=== PATIENT | female | born 1980 | race Caucasian/White ===

== ENCOUNTER → 2020-07-05 00:27 | Outpatient (CLI) | payer BC, SELFPAY ==
[2020-07-05 18:19] LABS: SARS-CoV-2 RNA PCR Negative
== END ==
PROVIDERS: Family Provider Family Medicine; PCP Family Medicine; Visit Provider Internal Medicine Gastroenterology
DX: Z01.812 Encounter for preprocedural laboratory examination (principal); Z20.822 Contact with and (suspected) exposure to COVID-19
CPT/HCPCS: C9803; U0003; U0005

== ENCOUNTER 2020-07-08 00:21 | Day surgery (SDC) | payer BC, SELFPAY ==
[2020-06-19 14:13] VITALS: BMI 29.6
[2020-07-08 07:51] VITALS: BP 122/71; PULSE 62; RESP 18; TEMP 36.3; O2SAT 99
[2020-07-08] MEDS: LACTATED RINGERS 1,000 ML 150 ML IV CONT (08:02)
--- NOTE | 2020-07-08 08:18 | WPDANESEPPF ---
Anes - Initial Pre Proc Eval Procedure: Operation Date: 07/08/20 09:15 Proposed Procedures p Colonoscopy - Jem Gamino MD Date/Time: 07/08/20 08:18 Surgeon: Jem Gamino MD Pre Op Diagnosis: Constipation Patient Data Age: 40 Gender: F Height: 5 ft 4 in Weight: 76.2 kg Last Vital Signs Temp 36.3 C L 07/08/20 07:51 Pulse 62 07/08/20 07:51 Resp 18 07/08/20 07:51 BP 122/71 07/08/20 07:51 Pulse Ox 99 07/08/20 07:51 Allergies Allergy/AdvReac Type Severity Reaction Status Date / Time Cephalosporins Allergy Mild Rash Unverified 06/13/20 10:51 Home Medications Medication Instructions Recorded Confirmed Type linaclotide 145 mcg capsule 145 mcg PO DAILY #30 cap 06/13/20 07/08/20 Rx minocycline 100 mg capsule 100 mg PO .PRN cap 06/13/20 07/08/20 History omeprazole 20 mg capsule,delayed 20 mg PO DAILY 06/13/20 07/08/20 History release Patient hx anesthesia problems: none Family hx anesthesia problems: none PMFSH Past Medical History Medical History Blood in stool Irritable bowel syndrome with constipation Surgical History Surgical History H/O: hysterectomy History of History of gastric bypass Family History Family History Father Hypertension Diabetes mellitus Mother Diabetes mellitus Hypertension Grandparent Heart disease Sibling Diabetes mellitus Sibling Diabetes mellitus Social History Social History Smoking status: Former smoker Tobacco type: cigarettes Second hand tobacco smoke exposure: No Alcohol intake: former Alcohol use details: NOT SINCE GASTRIC BYPASS Substance use: unknown Substance use type: unknown Living arrangements: with family Gender identity (if verbalized by the patient): Female Spiritual care concerns: No Anes - Eval Final PreProcedure Day of Procedure 07/08/20 08:18 Patient weight: overweight Heart: regular rate and rhythm Lungs: clear to auscultation Airway: Mallampati scale class 1 Neurological: alert and oriented Last oral intake: >/= 8 hours ASA classification: II Emergent: no Anesthetic plan: proceed Anesthesia type and monitoring: general GIVS and standard monitoring Informed Consent: The patient's anesthetic plan and its attendant risks and benefits were discussed with the patient/family/POA. Questions were solicited and answers provided to the satisfaction of the patient/family/POA.
--- NOTE | 2020-07-08 08:32 | WPDHPUPDATE1 ---
History and Physical Update Update Date/Time: 07/08/20 08:32 History and Physical has been reviewed, including an updated exam of the patient. There are NO changes in the patient's condition. Risks, benefits, and alternatives have been discussed and questions answered. Patient agrees to proceed with procedure.
[2020-07-08 08:58] VITALS: BP 109/63; PULSE 53; RESP 21; O2SAT 100
[2020-07-08 09:08] VITALS: BP 113/73; PULSE 49; RESP 18; O2SAT 100
[2020-07-08 09:18] VITALS: BP 105/68; PULSE 44; RESP 13; O2SAT 100
== END 2020-07-08 09:30 | disposition home or self-care (01) ==
PROVIDERS: Family Provider Family Medicine; PCP Family Medicine; Visit Provider Internal Medicine Gastroenterology
PROC: 0DJD8ZZ Inspection of Lower Intestinal Tract, Via Natural or Artificial Opening Endoscopic (ICD-10-PCS; CPT 45378; principal; 2020-07-08 09:15)
DX: Z12.11 Encounter for screening for malignant neoplasm of colon (principal); K64.8 Other hemorrhoids; K58.1 Irritable bowel syndrome with constipation; Z98.84 Bariatric surgery status; Z87.891 Personal history of nicotine dependence
CPT/HCPCS: 45378; J2001; J2704; J7120

== ENCOUNTER 2022-08-25 07:56 | Outpatient (CLI) | payer BC, SELFPAY ==
--- NOTE | ~2022-08-25 | NM_ITS ---
EXAM: NM gastric emptying study DATE: 08/25/2022 12:53 INDICATION: Postprandial abdominal bloating post gastric bypass 2 years prior. TECHNIQUE: A gastric emptying study was performed using the methodology of Mau BARBOSA, et al. J Nucl Med 2007; 48:568-572. The patient was given a meal consisting of 2 scrambled eggs labeled with 0.968 mCi Tc-99m sulfur colloid, 2 slices of toast, two packages of jam, and approximately 120 mL of water . Simultaneous anterior and posterior 1-min images of the abdomen were obtained with the patient supi ne at multiple time points over a total period of 4 hours. The geometric mean of anterior and posteri or views was determined, and the percentage retention was calculated for each time point. COMPARISON: None. FINDINGS: There is an atypical distribution of activity on the immediate scintigrams which likely reflects horn ges of a reported recent gastric bypass procedure. There is no prior imaging to assess the size and l ocation of the summed the gastric remnant or the course of the efferent limb which precludes quantita tive assessment for percentage of gastric emptying. The extent and orientation of the activity on the immediate images suggests a significant portion of the activity has already entered the efferent garcia b and which significantly increases on the more delayed images. It is unclear whether any of the acti vity on the subsequent images remains within the gastric remnant. There is no evident gastroesophagea l reflux. IMPRESSION: 1. Atypical configuration of activity consistent with provided history of gastric bypass procedure wi th no evident gastroesophageal reflux and with likely rapid initiation of emptying into the efferent limb. Reviewed, dictated and finalized at location A. IMPRESSION: 1. Atypical configuration of activity consistent with provided history of gastr ic bypass procedure with no evident gastroesophageal reflux and with likely rap id initiation of emptying into the efferent limb.
== END 2022-08-25 07:57 | disposition home or self-care (01) ==
LOC: ANHIMG 07:59
PROVIDERS: PCP Family Medicine; Visit Provider Nurse Practitioner Family
DX: R14.0 Abdominal distension (gaseous) (principal); R10.11 Right upper quadrant pain; Z98.84 Bariatric surgery status
CPT/HCPCS: 78264; A9541

== ENCOUNTER 2022-08-26 07:36 | Outpatient (CLI) | payer BC, SELFPAY ==
--- NOTE | ~2022-08-26 | MR_ITS ---
EXAMINATION: MR MRCP wo/w con/w 3D wo ind DATE: 08/26/2022 08:56 INDICATION: Right upper quadrant abdominal pain. Abnormal liver function tests. TECHNIQUE: Magnetic resonance imaging (MRI) of the abdomen was performed without and with 13 mL Multi Karina intravenous contrast. Sequences included coronal T2-weighted FS FSE, coronal T2-weighted FSE, a xial T1-weighted LAVA, coronal FS FIESTA, axial dual-echo T1-weighted SPGR, coronal lava-FLEX, sagitt al T2-weighted FSE, axial T2-weighted FSE, and axial DWI. Thick-slab T2-weighted FSE images were obta ined for magnetic resonance cholangiopancreatography (MRCP). Maximum intensity projection 3-D reconst ructions of the volumetric data were created by the technologist. Postcontrast sequences included cor onal LAVA-flex and time course of axial T1-weighted LAVA. COMPARISON: CT abdomen and pelvis 04/12/2009 FINDINGS: ABDOMEN MRI: The liver is normal. There are changes of cholecystectomy. 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 The spleen, adrenal glands, and kidneys are normal. There is a large volume of stool in the colon. There are no pathologically enlarged lymph nodes. There is no free intraperitoneal fluid. ABDOMEN MRCP: The common duct is normal and measures 9 mm. No choledocholithiasis. IMPRESSION: 1. No etiology for the patient's symptoms. Reviewed, dictated and finalized at location A.
== END 2022-08-26 07:37 | disposition home or self-care (01) ==
PROVIDERS: PCP Family Medicine; Visit Provider Nurse Practitioner Family
DX: R74.8 Abnormal levels of other serum enzymes (principal); K58.1 Irritable bowel syndrome with constipation; R10.11 Right upper quadrant pain
CPT/HCPCS: 74183; 76376; A9577

== ENCOUNTER 2024-09-25 00:33 | Day surgery (SDC) | payer OTHER, SELFPAY ==
[2024-09-22 10:04] VITALS: BMI 23.1
--- OUTSIDE RECORDS SUMMARY | 2024-09-25 00:36 | XMS_ITS | Clinical Summary ---
Author Organization [facility] Address [address] [place] [address] Care Team Providers Care Ase Master Mechanic Name Role Phone Fabian Knapp MD Primary Care Provider Allergies Active Allergy Reactions Criticality Noted Date Comments Cephalexin Unknown 04/17/2019 Medications Multiple Vitamin tablet Take 1 tablet by mouth daily. Active senna-docusate 8.6-50 MG Cap Take 1 tablet by mouth 2 (two) times a day. Active buPROPion 100 MG tablet Take 1 tablet (100 mg total) by mouth 3 (three) times daily. 2 Active LINZESS 290 MCG capsule Take 1 capsule (290 mcg total) by mouth daily. 2 Active Magnesium 30 MG Tab Take 30 mg by mouth daily. Active minocycline 100 MG capsule Take 1 capsule (100 mg total) by mouth 2 (two) times daily as needed. Active ondansetron 4 MG disintegrating tablet Take 1 tablet (4 mg total) by mouth every 6 (six) hours as needed. 1 Active Probiotic Product (ACIDOPHILUS) Chew Tab Chew 1 tablet by mouth daily. Active calcium citrate 950 (200 CA) MG Tab tablet 500 mg 3 (three) times daily. Active Magnesium Gluconate 550 MG Tab Take 30 mg by mouth daily. Active methylphenidate (RITALIN) 10 MG tablet Take 1 tablet (10 mg total) by mouth. Active omeprazole (PRILOSEC) 20 MG capsule Take 1 capsule (20 mg total) by mouth daily. 4 Active Active Problems Problem Noted Date Diagnosed Date Closed nondisplaced fracture of base of fourth metacarpal bone of left hand with routine healing, subsequent encounter 12/16/2023 Closed nondisplaced fracture of base of fifth metacarpal bone of left hand with routine healing, subsequent encounter 12/16/2023 Hematoma of left knee region 08/15/2021 Lytic bone lesion of left femur 08/15/2021 Encounters Date Type Department Care Team Description 08/07/2024 4:58 PM CDT - 08/07/2024 11:59 PM CDT Hospital Encounter [facility] [address] [facility] [place] [address] [place], [place] Discharge Disposition: Home or Self Care (Routine Discharge) 08/07/2024 Travel from Last 3 Months Immunizations Immunization Administration Dates Next Due Tdap (Boostrix) 11/21/2023 Family History Medical History Relation Comments Breast Cancer Maternal Aunt Relation Status Comments Maternal Aunt Social History Tobacco Use Types Packs/Day Years Used Date Smoking Tobacco: Former Smokeless Tobacco: Never Tobacco Cessation:Counseling Given: Not Answered Alcohol Use Standard Drinks/Week Comments No 0 (1 standard drink = 0.6 oz pur e alcohol) AUDIT-C Answer Date Recorded Frequency of Alcohol Consumption Never 04/17/2019 Average Number of Drinks Not on file 019 Frequency of Binge Drinking Not on file 03/25 Comments No Sex and Gender Information Value Date Recorded Sex Assigned at Not on file Legal Sex Female 11:18 PM CDT Gender Identity Not on file Sexual Orientation Not on file Last Filed Vital Signs Vital Sign Reading Time Taken Comments Blood Pressure 128/90 11/21/2023 11:15 AM CDT Pulse 88 11/21/2023 11:15 AM CDT Temperature 36.9 C (98.4 F) 11/21/2023 11:15 AM CDT Respiratory Rate 16 11/21/2023 11:15 AM CDT Oxygen Saturation 100% 11/21/2023 11:15 AM CDT Inhaled Oxygen Concentration - - Weight 65.8 kg (145 lb) 01/06/2024 2:55 PM CDT Height 162.6 cm (5' 4 ) 01/06/2024 2:55 PM CDT Body Mass Index 24.89 01/06/2024 2:55 PM CDT Plan of Treatment Health Maintenance Due Date Last Done Comments Cervical Cancer Screening Pap Smear (Age 30 to 64) Every 3 Years 1978 Colorectal Cancer Screening Colonoscopy (10 Years) 1978 Annual Physical 1981 Hepatitis B Vaccines (1 of 3 - 19+ 3-dose series) 1997 Cervical Cancer Screening Pap with HPV Testing (Age 30 to 64) Every 5 Years 2008 Cervical Cancer Screening with HPV 2008 COVID-19 Vaccine ( season) 2024 Mammogram Screening 04/24/2026 04/24/2024, 04/20/2023, 04/08/2022, Additional history exists DTaP, Tdap and Td Vaccines (2 - Td or Tdap) 11/20/2033 11/21/2023 Hepatitis C Completed 10/16/2022, 08/12/2021 Meningococcal B Vaccine Aged Out No l onger eligible based on patient's age to complete this topic Meningococcal Vaccine Aged Out No cynthia tyler eligible based on patient's age to complete this topic Pneumococcal Vaccine: Pediatrics (0 to 5 Years) and At-Risk Patients (6 to 49 Years) Aged Out No longer eligible based on patient's age to complete this topic RSV Immunizations Under 20 Months Aged Out No longer eligible based on patient's age to complete this topic Procedures Procedure Name Priority Date/Time Associated Diagnosis Comments XR HAND LT 3V Routine 08/07/2024 5:19 PM CDT Left hand pain MG SCREENING W MIHAELA BAUTISTA DIGI Routine 04/24/2024 10:01 AM FLAT LOCK OPERATOR Visit for screening mammogram HEPATITIS PANEL,ACUTE Routine 10/16/2022 11:15 AM CDT Abnormal levels of other serum enzymes from Last 3 Months or Most Recently Relevant to Health Maintenance Results * XR HAND LT 3V (08/07/2024 5:19 PM CDT) Anatomical Region Laterality Modality Hand Radiographic Anne ging 08/07/2024 6:38 PM CDT Impressions 08/07/2024 6:39 PM CDT IMPRESSION: No acute findings Ordered By: ROMAN RICHMOND Interpreted By: Rodri Ch MD, 08/07/2024 6:38 PM Narrative 08/07/2024 6:39 PM CDT [address] [place] [address] 3 VIEWS OF THE LEFT HAND Clinical History: Pain Comparison: January 06, 2024 3 views of the left hand demonstrate the bony elements to be intact. There is no evidence of fracture or dislocation. . The surrounding soft tissues are within normal limits Procedure Note Rodri Ch MD - 08/07/[address] [place] [address] 3 VIEWS OF THE LEFT HAND Clinical History: Pain Comparison: January 06, 2024 3 views of the left hand demonstrate the bony elements to be intact. Thereis no evidence of fracture or dislocation. . The surrounding soft tissuesare within normal limits IMPRESSION: No acute findings Ordered By: ROMAN RICHMOND Interpreted By: Rodri Ch MD, 08/07/2024 6:38 PM [facility] Final Result * MG SCREENING W MIHAELA BAUTISTA DIGI (04/24/2024 10:01 AM FLAT LOCK OPERATOR) Anatomical Region Laterality Modality Breast Bilateral Mammography 04/24/2024 1:43 PM FLAT LOCK OPERATOR Impressions 04/24/2024 1:44 PM FLAT LOCK OPERATOR IMPRESSION: No suspicious change since the previous exams. Recommendation: 1: Routine Screening Bilateral in 1 Year Assessment: ACR BI-RADS 2 - BENIGN FINDING(S) Ordered By: ROMAN RICHMOND Interpreted By: Sidney Jansen MD, 04/24/2024 1:43 PM Narrative 04/24/2024 1:44 PM FLAT LOCK OPERATOR [address] [place] [address] Examination: Digital screening mammogram with CAD. Clinical history: Asymptomatic patient presents for routine screening. Comparison: 04/20/2023, 04/08/2022, 04/03/2021, 03/27/2020. Technique: Bilateral digital mammograms. The exam was interpreted with the use of a computer-aided detection (CAD) system. Additional 3-D tomosynthesis images were acquired. Tissue density: The breasts are heterogeneously dense which may obscure small masses. Findings: The breast tissue is heterogeneously dense. The dense tissue may obscure some lesions mammographically. Benign-appearing calcification noted. No suspicious mass, microcalcification or area of architectural distortion can be identified. From a mammographic standpoint, routine followup in one year would seem adequate. us [facility] Final Result * HEPATITIS PANEL,ACUTE (10/16/2022 11:15 AM CDT) HEPATITIS B SURFACE AG NON-REACT KORIN NON-REACT KORIN 10/18/2022 8:40 AM CDT [facility] Comment:HBsAg NOT DETECTED. HEP B CORE IGM NON-REACT KORIN NON-REACT KORIN 10/18/2022 8:40 AM CDT [facility] Comment: IgM ANTI HBc NOT DETECTED. DOES NOT EXCLUDE THE POSSIBILITY OF EXPOSURE TO OR INFECTION WITH HBV. NO RETEST REQUIRED. HIGH DOSES OF BIOTIN MAY INTERFERE WITH THIS TEST RESULT. CORRELATION TO CLINICAL HISTORY AND PRESENTATION RECOMMENDED. HAV IGM NON-REACT KORIN NON-REACT KORIN 10/18/2022 8:40 AM CDT [facility] Comment: IgM ANTI HAV NOT DETECTED. DOES NOT EXCLUDE THE POSSIBILITY OF EXPOSURE TO OR INFECTION WITH HAV. LEVELS OF IgM ANTI HAV MAY BE BELOW THE CUTOFF IN EARLY INFECTION. HEPATITIS C AB NON-REACT KORIN NON-REACT KORIN 10/18/2022 8:40 AM CDT [facility] Comment: ANTIBODIES TO HCV NOT DETECTED. DOES NOT EXCLUDE THE POSSIBILITY OF EXPOSURE TO HCV. 10/16/2022 11:1 5 AM CDT [facility] Final Result [facility] [address] [place] [address], [id number] from Last 3 Months or Most Recently Relevant to Health Maintenance Insurance [facility] Care Teams Ase Master Mechanic Relationship Specialty Start Date End Date Fabian Knapp MD [address] [place] [phone] PCP - General FAMILY PRACTICE 12/27/18
--- OUTSIDE RECORDS SUMMARY | 2024-09-25 00:36 | XMS_ITS | Encounter Summary ---
Author Organization [facility] Address [address] [place] [id number] Care Team Providers Care Ski Topper Name Role Phone Fabian Knapp MD Primary Care Provider Encounter Details Date Type Department Care Team (Late st Contact Info) Description 10/29/2018 Abstract [facility] CONVERSION [address] [place] [address] , Generic Conversion, Social History Tobacco Use Types Packs/Day Years Used Date Smoking Tobacco: Smoker, Current Status Unknown Comments Unknown Sex and Gender Information Value Date Recorded Sex Assigned at Not on file Legal Sex Female 11:18 PM CDT Gender Identity Not on file Sexual Orientation Not on file documented as of this encounter Plan of Treatment Not on file documented as of this encounter Visit Diagnoses Not on filedocumented in this encounter Care Teams Ski Topper Relationship Specialty Start Date End Date Fabian Knapp MD [address] [place] [phone] PCP - General FAMILY PRACTICE 12/27/18 documented as of this encounter
--- OUTSIDE RECORDS SUMMARY | 2024-09-25 00:36 | XMS_ITS | Encounter Summary ---
Author Organization [facility] Address [address] [place] [id number] Care Team Providers Care Managing Principal Name Role Phone Fabian Knapp MD Primary Care Provider [phone] Encounter Details Date Type Department Care Team (Late st Contact Info) Description 10/28/[address] [facility] [place] [address] Mishel Fermin, [facility] [address] [facility] [place] [address] Visit Follow Up Social History Tobacco Use Types Packs/Day Years Used Date Smoking Tobacco: Former Smokeless Tobacco: Never Alcohol Use Standard Drinks/Week Comments No 0 [...] on file Sexual Orientation Not on file COVID-19 Exposure Response Date Recorded In the last 10 days, have yo u been in contact with someone who was confirmed or suspected to have Coronavirus/COVID-19? No / Unsure 10/28/2021 1:22 PM CDT documented as of this encounter Plan of Treatment Not on file documented as of this encounter Visit Diagnoses Not on filedocumented in this encounter Care Teams Managing Principal Relationship Specialty Start Date End Date Fabian Knapp MD [address] [place] [phone] PCP - General FAMILY PRACTICE 12/27/18 documented as of this encounter
--- OUTSIDE RECORDS SUMMARY | 2024-09-25 00:36 | XMS_ITS | Clinical Summary ---
Author Organization [facility] Address [address] [place] [address] Care Team Providers Care Stereo Equipment Repairer Name Role Phone Fabian Knapp MD Primary Care Provider Shira Mendez RN Unavailable Unavailable Latonia Jackman RN Unavailable Unavailab le Allergies Active Allergy Reactions Criticality Noted Date Comments Cephalexin Rash Medium 05/19/2017 Medications lubiprostone (AMITIZA) 24 mcg capsule 3 Active magnesium 30 mg tablet Take 1 tablet (30 mg total) by mouth daily Active biotin 5 mg tablet Take 5 mg by mouth 2 (two) times a day Active iron,carbonyl-rebel min C (Vitron-C) 65 mg iron- 125 mg tablet,delayed release (DR/EC) Take by mouth Active sennosides-docusat e sodium 8.6-50 mg capsule Take 1 tablet by mouth 2 (two) times a day Active buPROPion (WELLBUTRIN) 100 mg tablet 3 Active calcium citrate-vitamin D3 500 mg-12.5 mcg (500 unit) tablet,chewable Acti ve Lactobac. rhamnosus GG-inulin 10 billion cell -200 mg tablet,chewable A ctive methylphenidate HCl 10 mg/5 mL solution 3 Active multivit-min/iron/ folic acid/K (BARIATRIC MULTIVITAMINS ORAL) 0 Active minocycline (MINOCIN,DYNACIN) 100 mg recon soln 1 Active sodium, potassium & mag sulfates (SUPREP BOWEL KIT) 17.5-3.13-1.6 gram recon solnIndications:Myron wel Evacuation Take first bottle at 6 PM, take the second bottle 6 hours prior to arrival 354 mL 3 Active diclofenac epolamine (FLECTOR) 1.3 %Indications:Sprai ns and Strains Place 1 patch on the skin 2 (two) times a day 60 patch 1 4 Active Active Problems Problem Noted Date Diagnosed Date Right hip pain 06/15/2023 Myofascial pain dysfunction syndrome 06/15/2023 Primary osteoarthritis of right hip 06/15/2023 Elevated liver enzymes 03/17/2023 Intussusception 03/17/2023 Pancreatic divisum 03/17/2023 Chronic abdominal pain 03/17/2023 Constipation 03/17/2023 Screening for malignant neoplasm of colon 2022 Lumbar facet joint syndrome 11/18/2022 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 01/31/2019 Myalgia 07/08/2017 Chronic bilateral low back pain without sciatica 05/20/2017 Lumbosacral spondylosis without myelopathy 05/20 Other obesity due to excess calories 05/20/2017 Surgical History Surgery Date Site/Laterality Comments HYSTERECTOMY GASTRIC BYPASS SECTION CHOLECYSTECTOMY COLON SURGERY 3 inches of bowel removed Medical History Medical History Date Comments Chronic constipation Anemia Anxiety Social History Tobacco Use Types Packs/Day Years Used Date Smoking Tobacco: Former Cigarettes Q uit: 09/05/2010 Smokeless Tobacco: Never Tobacco Cessation:Counseling Given: Not Answered Alcohol Use Standard Drinks/Week Comments Yes 0 (1 standard drink = 0.6 oz pur e alcohol) rarely AUDIT-C Answer Date Recorded Q1: How often do you have a drink containing alcohol? Never 04/01/2023 Q2: How many drinks containi ng alcohol do you have on a typical day when you are drinking? Patient does not drink Q3: How often do you have si x or more drinks on one occasion? Never 04/01/2023 Personal Safety Answer Date Recorded Have you ever been in or are you currently in a harmful physical or emotional relationship or is someone making you feel afraid or unsafe? Denies 04/02/2023 Comments No Sex and Gender Information Value Date Recorded Sex Assigned at Not on file Legal Sex Female 9:30 AM CDT Gender Identity Female 03/11/2023 8:17 AM CDT Sexual Orientation Straight 03/11/2023 8: 17 AM CDT Obstetrics History Last Filed Vital Signs Vital Sign Reading Time Taken Comments Blood Pressure 121/83 06/29/2023 2:50 PM OVERHEAD DOOR TECHNICIAN Pulse 69 06/29/2023 2:50 PM OVERHEAD DOOR TECHNICIAN Temperature 36.4 C (97.6 F) 04/02/2023 10:14 AM OVERHEAD DOOR TECHNICIAN Respiratory Rate 16 06/29/2023 2:50 PM OVERHEAD DOOR TECHNICIAN Oxygen Saturation 100% 06/29/2023 2:50 PM OVERHEAD DOOR TECHNICIAN Inhaled Oxygen Concentration - - Weight 72.3 kg (159 lb 6.4 oz) 05/20/2023 9:42 A M OVERHEAD DOOR TECHNICIAN Height 165.1 cm (5' 5 ) 05/20/2023 9:42 AM OVERHEAD DOOR TECHNICIAN Body Mass Index 26.53 05/20/2023 9:42 AM OVERHEAD DOOR TECHNICIAN Plan of Treatment Health Maintenance Due Date Last Done Comments Breast Cancer Screening-Mammogram 1978 Depression Screening 1978 Hepatitis C Screening 1978 DTaP/Tdap/Td Vaccine (1 - Tdap) 1989 Hepatitis B Screening 1996 Regular Well Visit/Exam 18-64 1996 Influenza Vaccine (Season Ended) 2025 03/29/20 18 Colon Cancer Screening-Colonoscopy 04/02/20332022 HPV Vaccines Aged Out No longer eligi ble based on patient's age to complete this topic Pneumococcal vaccine <65 Aged Out No longer eligible based on patient's age to complete this topic Goals Goal Patient Goal Type Associated Problems Recent Progress Patient-Stated? Author Increase physical activity Exercise Shira Cates, RN Note: Encouraged to walk at least 30 minutes 3 times a week. Procedures Procedure Name Priority Date/Time Associated Diagnosis Comments COLONOSCOPY 04/02/2023 11:38 AM OVERHEAD DOOR TECHNICIAN from Last 3 Months or Most Recently Relevant to Health Maintenance Results * COLONOSCOPY (04/02/2023 11:38 AM OVERHEAD DOOR TECHNICIAN) Anatomical Region Laterality Modality Other Narrative Procedure Note Abdoul Hamilton MD - 04/02/2023 11:38 AM CST ENDOSCOPY LAB Patient Name: Heather Bone Procedure Date: 04/02/2023 11:38AM Admit Type: Outpatient Room: [facility] Date of : 1980 Instrument Name: [id number] Gender: Female Note Status: Finalized Procedure: Colonoscopy Indications: Constipation Providers: Abdoul Hamilton M.D. Referring MD: Fabian Knapp M.D. Medicines: Monitored Anesthesia Care Complications: No immediate complications. Estimated Blood Loss: Estimated blood loss: none. Procedure: Pre-Anesthesia Assessment: - The risks and benefits of the procedure and the sedation options and risks were discussed with the patient. All questions were answered and informed consent was obtained. - Immediately prior to administration ofmedications, the patient was re-assessed for adequacy to receive sedatives. The benefits, risks and alternatives of theprocedure and sedation were discussed and informed consentwas obtained. All questions were answered. Please referto the signed informed consent document in the medical record. The scope was passed under direct vision.The Colonoscope was introduced through the anus and advanced to the cecum, identified by appendiceal orifice and ileocecal valve. The colonoscopy was performed without difficulty. The patient tolerated the procedure well. The quality of the bowel preparation was inadequate. The bowel preparationused was GoLYTELY via split dose instruction. Findings: The perianal and digital rectal examinations were normal. Extensive amounts of semi-solid stool was found in the entire colon, precluding visualization. Impression: - Preparation of the colon was inadequate. - Stool in the entire examined colon. Recommendation: - Repeat colonoscopy at appointment to be scheduled for screening purposes. Perform with two day bowel preparation. - Return to referring physician as previously scheduled. Attending Participation: I personally performed the entire procedure. Electronically signed by Abdoul Hamilton M.D. Abdoul Hamilton M.D. 04/02/2023 12:18:03 PM This document was signed electronically. Number of Addenda: 0 Note Initiated On: 04/02/2023 11:38 AM Scope In: 11:46:04 AM Scope Out: 11:46:45 AM Abdoul Hamilton MD ENDOSCOPY PROCEDURES Final Result from Last 3 Months or Most Recently Relevant to Health Maintenance Insurance [employer] Member Subscriber Plan / Payer ( fective 2019-Present) Name:Heather MedeirosKendrick Relation to Subscriber:Self Name:Heather MedeirosKendrick Payer ID:[id number] (NAIC) Group ID:[id number] Type:[employer] Address: [address] [place] [facility] Care Teams Stereo Equipment Repairer Relationship Specialty Start Date End Date Fabian Knapp MD PCP - General 04/14/17 Shira Mendez, RN Registered Nurse 07/08/17 Latonia Jackman, RN Registered Nurse 01/31/19
--- OUTSIDE RECORDS SUMMARY | 2024-09-25 00:36 | XMS_ITS | Encounter Summary ---
Author Organization [facility] Address [address] [place] [address] Phone Care Team Providers Care Roll Contour Grinder Name Role Phone Fabian Knapp MD Primary Care Provider [phone] Shira Mendez RN Unavailable Unavailable Jackman, Latonia Herrera RN Unavailable Unavailab le Encounter Details Date Type Department Care Team (Late st Contact Info) Description 07/08/2020 Orders Only [facility] Scanning, Provider Social History Tobacco Use Types Packs/Day Years Used Date Smoking Tobacco: Former Cigarettes Q uit: 09/05/2010 Smokeless Tobacco: Never Alcohol Use Standard Drinks/Week Comments Yes 0 (1 standard drink = 0.6 oz pur e alcohol) rarely Comments No Sex and Gender Information Value Date Recorded Sex Assigned at Not on file Legal Sex Female 9:30 AM CDT Gender Identity Female 03/11/2023 8:17 AM CDT Sexual Orientation Straight 03/11/2023 8: 17 AM CDT documented as of this encounter Plan of Treatment Not on file documented as of this encounter Goals Goal Patient Goal Type Associated Problems Recent Progress Patient-Stated? Author Increase physical activity Exercise No Shira Mendez, NIMA Note: Encouraged to walk at least 30 minutes 3 times a week. documented as of this encounter Procedures Procedure Name Priority Date/Time Associated Diagnosis Comments GI - RESULT 07/08/2020 documented in this encounter Results * GI - RESULT (07/08/2020) Anatomical Region Laterality Modality Other us Provider Scanning Final Result documented in this encounter Visit Diagnoses Not on filedocumented in this encounter Care Teams Roll Contour Grinder Relationship Specialty Start Date End Date Fabian Knapp MD PCP - General 04/14/17 Shira Mendez, RN Registered Nurse 07/08/17 Latonia Jackman RN Registered Nurse 01/31/19 documented as of this encounter
--- OUTSIDE RECORDS SUMMARY | 2024-09-25 00:36 | XMS_ITS | Clinical Summary ---
Author Organization [facility] [employer] Address [address] [address] Care Team Providers Care Count Room Clerk Name Role Phone Ciaran Knapp MD Primary Care Provider [phone] Source Comments [facility],non-owned Affiliates and Associated Physician Practices is amultiple site organization consisting of ambulatory clinics and hospital sitesin [place], [place], [place] and [place]. This disclosure is being madepursuant to the Care Everywhere program and may not contain all information available regarding this patient. Last updated 18.[facility] [employer] Allergies Active Allergy Reactions Criticality Noted Date Comments Cephalexin Rash,Unknown Medium 05/19/2017 Medications * Be aware that medications may not be up to date on this document. Alwaysverify current medications with the patient. minocycline (MINOCIN) 100 MG capsuleIndicati ons:Acne Vulgaris,as needed Take 1 (one) capsule by mouth 2 times daily as needed Reasons: Common Acne, as needed Active LINZESS 290 MCG capsule Take 1 (one) capsule by mouth daily before breakfast 1 Active buPROPion (WELLBUTRIN) 100 MG tablet Take 1 (one) tablet by mouth 3 times daily 2 Active Sennosides-Docu sate Sodium (SENNA-DOCUSATE SODIUM) 8.6-50 MG Take 1 (one) tablet by mouth every morning Active Probiotic Product (PROBIOTIC PO) Take 1 capsule by mouth once daily Bariatric Katie Advantage Control Active Biotin 5000 MCG Take 1 (one) tablet by mouth 2 times daily Active Iron-Vitamin C (Vitron-C) 65-125 MG TABS Activ e metoclopramide (Reglan) 10 MG tablet Take 1 (one) tablet by mouth 4 times daily - before meals & nightly 30 tablet 3 Active Additional Information Patient not taking.Reported on 03/03/2023 clindamycin (Cleocin) 1 % gel 3 Active lubiprostone (Amitiza) 24 MCG capsule 3 Active methylphenidate (Ritalin) 10 MG tablet Take 1 (one) tablet by mouth Every morning and lunchtime Active tretinoin (Retin-A) 0.025 % cream 3 Active ondansetron, disintegrating, (Zofran ODT) 4 MG tablet Take 1 (one) tablet by mouth every 6 hours as needed for Nausea/Vomiting Allow tablet to dissolve on the tongue 60 tablet 4 3 Active omeprazole (PriLOSEC) 20 MG capsule Take 1 (one) capsule by mouth once daily 30 capsule 5 4 Active sucralfate (Carafate) 1 GM/10ML suspension Take 10 mL by mouth 4 times daily 1200 mL 1 4 Active Active Problems Problem Noted Date Diagnosed Date Intestinal intussusception 01/05/2022 S/P abdominoplasty 10/29/2021 Iron deficiency anemia 10/02/2021 Lytic bone lesion of left femur 08/15/2021 SBO (small bowel obstruction) 01/27/2021 S/P gastric bypass 02/19/2020 Morbid obesity due to excess calories 02/19/2020 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 01/31/2019 Myalgia 07/08/2017 Chronic bilateral low back pain without sciatica 05/20/2017 Lumbosacral spondylosis without myelopathy 05/20 Abdominal pannus Family History Medical History Relation Name Comments Hypertension Mother Relation Name Status Comments Mother Social History Tobacco Use Types Packs/Day Years Used Date Smoking Tobacco: Former Smokeless Tobacco: Former Tobacco Cessation:Counseling Given: Not Answered Alcohol Use Standard Drinks/Week Comments Not Currently 0 (1 standard drink = 0.6 oz pur e alcohol) Hunger Vital Sign Answer Date Recorded Within the past 12 months, y ou worried that your food would run out before you got the money to buy more. Never true 01/07/20 22 Within the past 12 months, t he food you bought just didn't last and you didn't have money to get more. Never true 01/06/2022 Comments No Sex and Gender Information Value Date Recorded Sex Assigned at Not on file Legal Sex Female 3:45 PM LAYUP WORKER Gender Identity Not on file Sexual Orientation Not on file Last Filed Vital Signs Vital Sign Reading Time Taken Comments Blood Pressure 135/73 07/14/2023 3:15 PM LAYUP WORKER Pulse 71 07/14/2023 3:15 PM LAYUP WORKER Temperature 36.4 C (97.5 F) 07/14/2023 3:15 PM LAYUP WORKER Respiratory Rate 18 07/14/2023 3:15 PM LAYUP WORKER Oxygen Saturation 100% 07/09/2023 10:13 AM LAYUP WORKER Inhaled Oxygen Concentration - - Weight 70.3 kg (155 lb) 11/10/2023 11:00 AM CDT Height 165.1 cm (5' 5 ) 11/10/2023 11:00 AM CDT Body Mass Index 25.79 11/10/2023 11:00 AM CDT Plan of Treatment Health Maintenance Due Date Last Done Comments COLOGUARD (AGES 45-75) - COLON CA SCREENING [address] COLONOGRAPHY - COLON CA SCREENING 1978 FIT - COLON CA SCREENING 1978 FLEX SIG - COLON CA SCREENING 1978 LIPID TESTING 1978 PAP SMEAR 1978 HIV SCREENING 1993 DTAP/TDAP/TD VACCINES (1 - Tdap) 1997 HEPATITIS B VACCINE (1 of 3 - 19+ 3-dose series) 1997 COVID-19 VACCINE ( season) 2024 08/02/2020, 07/12/2020 DEPRESSION SCREENING 05/24/2024 INFLUENZA VACCINE (Season Ended) 2025 MAMMOGRAM 04/20/2025 04/20/2023, 03/25, 04/08/2022, Additional history exists SCREENING FOR DIABETES 08/05/2025 , 01/06/2022, 07/14/2021, Additional history exists ZOSTER VACCINE (1 of 2) 2028 COLONOSCOPY - COLON CA SCREENING 04/02/2033 04/02/2023 Colorectal Cancer Screening 04/02/2033 HEPATITIS C SCREENING Completed 10/16/2022, 022 HIB VACCINE Aged Out No longer eligi ble based on patient's age to complete this topic HPV VACCINE Aged Out No longer eligi ble based on patient's age to complete this topic MENINGOCOCCAL (Group B) VACCINE SHARED DECISION-MAKING Aged Out No longer eligible based on patient's age to complete this topic MENINGOCOCCAL GROUPS A/C/Y/W VACCINE Aged Out No longer eligible based on patient's age to complete this topic PNEUMOCOCCAL VACCINE Aged Out No long er eligible based on patient's age to complete this topic Procedures Procedure Name Priority Date/Time Associated Diagnosis Comments COMPREHENSIVE METABOLIC PANEL Routine 08/05/2022 12:21 PM CDT Bariatric surgery status Iron deficiency anemia, unspecified iron deficiency anemia type Vitamin deficiency Mineral deficiency Vitamin D deficiency Other specified intestinal malabsorption Vitamin B deficiency from Last 3 Months or Most Recently Relevant to Health Maintenance Results * (ABNORMAL) COMPREHENSIVE METABOLIC PANEL (08/05/2022 12:21 PM CDT) Glucose 98 70 - 105 mg/dL [facility] ACCOUNT BILL BUN 18 7 - 18.7 mg/dL [facility] ACCOUNT B[facility] Creatinine 0.85 0.57 - 1.11 mg/dL [facility] ACCOUNT BILL eGFR by CKD-EPI 87(L) >=90 mL/min/1.7 3 m2 [facility] ACCOUNT BILL Sodium 139 136 - 145 mmol/L [facility] ACCOUNT BILL Potassium 3.8 3.5 - 5.1 mmol/L [facility] ACCOUNT BILL Chloride 104 98 - 107 mmol/L [facility] ACCOUNT BILL CO2 27 23 - 31 mmol/L [facility] ACCOUNT BILL Calcium 9.3 8.4 - 10.4 mg/dL [facility] ACCOUNT BILL Protein Total 7.1 6.4 - 8.3 gm/dL [facility] ACCOUNT BILL Albumin 4.7 3.5 - 5.2 gm/dL [facility] ACCOUNT BILL Bilirubin Total 0.4 0.2 - 1.2 mg/dL [facility] ACCOUNT BILL Alkaline Phosphatase 83 40 - 150 U/L [facility] ACCOUNT BILL AST 51(H) 5 - 34 U/L [facility] ACCOUNT BILL ALT 85(H) 0 - 61 U/L [facility] ACCOUNT BILL Blood BLOOD SPECIMEN / Unknown 08/05/2022 12:21 PM CDT 08/05/2022 Narrative Resulting Agency Comment Lab Testing performed at: [address] [place] [id number] Cinthia Hayward [facility] - CHEMISTRY O RDERABLES Final Result [facility] ACCOUNT BILL [address] [place] [address] from Last 3 Months or Most Recently Relevant to Health Maintenance Insurance ANTHEM ANTHEM Advance Directives * Full Code (Latest Code Status on File) Date Activated Date Inactivated Comments 01/05/2022 7:51 PM 01/06/2022 5:58 PM * Full Code Date Activated Date Inactivated Comments 10/10/2021 7:22 AM 10/11/2021 11:42 AM * Full Code Date Activated Date Inactivated Comments 01/27/2021 3:17 AM 01/27/2021 6:43 PM * Full Code Date Activated Date Inactivated Comments 02/19/2020 1:51 PM 02/20/2020 7:06 PM Care Teams Count Room Clerk Relationship Specialty Start Date End Date Ciaran Knapp MD [address] [place] [address] PCP - General 07/14/21
--- OUTSIDE RECORDS SUMMARY | 2024-09-25 00:36 | XMS_ITS | Encounter Summary ---
Author Organization [facility] Address [address] [place] [id number] Care Team Providers Care Textile Examiner Name Role Phone Fabian Knapp MD Primary Care Provider Encounter Details Date Type Department Care Team (Late st Contact Info) Description 03/30/2024 Signicast Message Enc [facility] [address] [address] Mishel Fermin, [facility] [address] [facility] [place] [id number] Hand Social History Tobacco Use Types Packs/Day Years [...] on filedocumented in this encounter Care Teams Textile Examiner Relationship Specialty Start Date End Date Fabian Knapp MD [address] [place] [phone] PCP - General FAMILY PRACTICE 12/27/18 documented as of this encounter
--- OUTSIDE RECORDS SUMMARY | 2024-09-25 00:36 | XMS_ITS | Referral Summary ---
Author Organization [facility] Address [address] [place] [address] Care Team Providers Care Paper Coating Supervisor Name Role Phone Fabian Knapp MD Primary [...] Other obesity due to excess calories 05/20/2017 Social History Tobacco Use Types Packs/Day Years [...] Orientation Straight 03/11/2023 8: 17 AM CDT Last Filed Vital Signs Vital Sign Reading Time Taken Comments Blood Pressure 121/83 06/29/2023 2:50 PM RISK CONTROL SPECIALIST Pulse 69 06/29/2023 2:50 PM RISK CONTROL SPECIALIST Temperature 36.4 C (97.6 F) 04/02/2023 10:14 AM RISK CONTROL SPECIALIST Respiratory Rate 16 06/29/2023 2:50 PM RISK CONTROL SPECIALIST Oxygen Saturation 100% 06/29/2023 2:50 PM RISK CONTROL SPECIALIST Inhaled Oxygen Concentration - - Weight 72.3 kg (159 lb 6.4 oz) 05/20/2023 9:42 A M RISK CONTROL SPECIALIST Height 165.1 cm (5' 5 ) 05/20/2023 9:42 AM RISK CONTROL SPECIALIST Body Mass Index 26.53 05/20/2023 9:42 AM RISK CONTROL SPECIALIST Plan of Treatment Not on file Goals Goal Patient Goal Type Associated Problems Recent Progress Patient-Stated? Author Increase physical activity Exercise Shira Cates, NIMA Note: Encouraged to walk at least 30 minutes 3 times a week. Procedures Procedure Name Priority Date/Time Associated Diagnosis Comments COLONOSCOPY 04/02/2023 11:38 AM RISK CONTROL SPECIALIST from Last 3 Months or Most Recently Relevant to Health Maintenance Results * COLONOSCOPY (04/02/2023 11:38 AM RISK CONTROL SPECIALIST) Anatomical Region Laterality Modality Other Narrative Procedure Note Abdoul Hamilton MD - 04/02/2023 11:38 AM CST ENDOSCOPY LAB Patient Name: Heather Bone Procedure Date: 04/02/2023 11:38AM Admit Type: Outpatient Room: [facility] Date of : 1980 Instrument Name: [id number] [...] Most Recently Relevant to Health Maintenance Insurance [facility] ANTHEM ACCESS ANTHEM ACCESS CHOICE [id number] [place] [address] [facility] Care Teams Paper Coating Supervisor Relationship Specialty Start Date End Date Fabian Knapp MD PCP - General 04/14/17 Shira Mendez, RN Registered Nurse 07/08/17 Latonia Jackman RN Registered Nurse 01/31/19
[2024-09-25 08:55] VITALS: BP 117/81; PULSE 55; RESP 18; TEMP 36.3; O2SAT 100
[2024-09-25] MEDS: LACTATED RINGERS 1,000 ML 150 ML IV CONT (09:12)
--- NOTE | 2024-09-25 09:24 | P.PNAN_ITS ---
Anes - Initial Pre Proc Eval Procedure: Operation Date: 09/25/24 09:30 Proposed Procedures p Colonoscopy - Jem Gamino MD Date/Time: 09/25/24 09:24 Surgeon: Jem Gamino MD Pre Op Diagnosis: IBS Patient Data Age: 44 Gender: F Height: 1.63 m Weight: 61.6 kg Last Vital Signs Temp 97.4 F L 09/25/24 08:55 Pulse 55 L 09/25/24 08:55 Resp 18 09/25/24 08:55 BP 117/81 09/25/24 08:55 Pulse Ox 100 09/25/24 08:55 O2 Del Method Room Air 09/25/24 08:55 Allergies Allergy/AdvReac Type Severity Reaction Status Date / Time Cephalosporins Allergy Mild Rash Verified 09/25/24 08:54 Home Medications ?Medication ?Instructions ?Recorded ?Confirmed ?Type minocycline 100 mg capsule 100 mg PO .PRN 06/13/20 09/22/24 History L.acidoph,paracasei,B.animalis 10 cell PO 05/27/21 06/28/24 History billion cell capsule (Digestive Advantage Advanced Probiotic) biotin 10,000 mcg disintegrating 10,000 mcg PO DAILY 05/27/21 09/22/24 History tablet bupropion HCl 100 mg tablet 100 mg PO TID 05/27/21 09/22/24 History calcium 500 mg (citrate)-vit D3 g PO 05/27/21 06/28/24 History 12.5 mcg (500 unit)/5 gram oral powder iron, carbonyl 18 mg iron chewable 18 mg PO DAILY 05/27/21 09/22/24 History tablet (Ferretts Carbonyl Iron) magnesium 200 mg tablet 200 mg PO DAILY 05/27/21 09/22/24 History multivitamin with iron 1 tablet PO DAILY 05/27/21 09/22/24 History iron,carbonyl 65 mg-vitamin C 125 1 tablet PO DAILY 01/13/22 09/22/24 History mg tablet,delayed release (Vitron-C) sertraline 50 mg tablet (Zoloft) 50 mg PO DAILY 10/26/22 09/22/24 History linaclotide 290 mcg capsule 290 mcg PO DAILY #90 caps 06/29/24 09/22/24 Rx (Linzess) Patient hx anesthesia problems: none Family hx anesthesia problems: none Results Review: All pre-operative results and documents have been reviewed as part of the pre- operative evaluation. [facility] Past Medical History Medical History Chronic abdominal pain Pancreas divisum Postprandial abdominal bloating Elevated liver enzymes Right upper quadrant pain Blood in stool Irritable bowel syndrome with constipation Surgical History Surgical History History of gastric bypass H/O: hysterectomy History of Family History Family History Father Hypertension Diabetes mellitus Mother Diabetes mellitus Hypertension Grandparent Heart disease Sibling Diabetes mellitus Sibling Diabetes mellitus Social History Social History Smoking status: Former smoker Tobacco type: cigarettes Second hand tobacco smoke exposure: No Alcohol intake: never Alcohol use details: NOT SINCE GASTRIC BYPASS Substance use: never Substance use type: does not use Living arrangements: with family Occupation/Education: occupation Gender identity (if verbalized by the patient): Female Spiritual care concerns: No Anes - Eval Final PreProcedure Day of Procedure 09/25/24 09:24 Patient weight: normal Lungs: normal air movement Airway: Mallampati scale class II Neurological: alert and oriented Last oral intake: >/= 8 hours ASA classification: II Emergent: no Anesthetic plan: proceed Anesthesia type and monitoring: general GIVS and standard monitoring Results Review: All pre-operative results and documents have been reviewed as part of the pre- operative evaluation. Ex smoker, quit 2010, now w chr abdominal pain and for colonscopy. Informed Consent: The patient's anesthetic plan and its attendant risks and benefits were discussed with the patient/family/POA. Questions were solicited and answers provided to the satisfaction of the patient/family/POA.
--- NOTE | 2024-09-25 09:48 | PM.HPGS ---
History of Present Illness History of Present Illness Consent: Risks, benefits, and alternatives have been discussed and questions answered. Patient agrees to proceed with procedure. Chief complaint: IBS Narrative: Heather Medeiros is a 44 year old female with ibs constipation, here for colonoscopy Review of Systems Review of Systems: All systems reviewed & are unremarkable except as noted in HPI and below PMFSH Past Medical History Medical History Chronic abdominal pain Pancreas divisum Postprandial abdominal bloating Elevated liver enzymes Right upper quadrant pain Blood in stool Irritable bowel syndrome with constipation Surgical History Surgical History History of gastric bypass H/O: hysterectomy History of Family History Family History Father Hypertension Diabetes mellitus Mother Diabetes mellitus Hypertension Grandparent Heart disease Sibling Diabetes mellitus Sibling Diabetes mellitus Social History Social History Smoking status: Former smoker Tobacco type: cigarettes Second hand tobacco smoke exposure: No Alcohol intake: never Alcohol use details: NOT SINCE GASTRIC BYPASS Substance use: never Substance use type: does not use Living arrangements: with family Occupation/Education: occupation Gender identity (if verbalized by the patient): Female Spiritual care concerns: No Meds Home Medications and Allergies Home Medications ?Medication ?Instructions ?Recorded ?Confirmed ?Type minocycline 100 mg capsule 100 mg PO .PRN 06/13/20 09/22/24 History L.acidoph,paracasei,B.animalis 10 cell PO 05/27/21 06/28/24 History billion cell capsule (Digestive Advantage Advanced Probiotic) biotin 10,000 mcg disintegrating 10,000 mcg PO DAILY 05/27/21 09/22/24 History tablet bupropion HCl 100 mg tablet 100 mg PO TID 05/27/21 09/22/24 History calcium 500 mg (citrate)-vit D3 g PO 05/27/21 06/28/24 History 12.5 mcg (500 unit)/5 gram oral powder iron, carbonyl 18 mg iron chewable 18 mg PO DAILY 05/27/21 09/22/24 History tablet (Ferretts Carbonyl Iron) magnesium 200 mg tablet 200 mg PO DAILY 05/27/21 09/22/24 History multivitamin with iron 1 tablet PO DAILY 05/27/21 09/22/24 History iron,carbonyl 65 mg-vitamin C 125 1 tablet PO DAILY 01/13/22 09/22/24 History mg tablet,delayed release (Vitron-C) sertraline 50 mg tablet (Zoloft) 50 mg PO DAILY 10/26/22 09/22/24 History linaclotide 290 mcg capsule 290 mcg PO DAILY #90 caps 06/29/24 09/22/24 Rx (Linzess) Allergies Allergy/AdvReac Type Severity Reaction Status Date / Time Cephalosporins Allergy Mild Rash Verified 09/25/24 08:54 Vital Signs Vital Signs - 24 hr 09/25/24 08:55 Temperature 97.4 F L Pulse Rate 55 L Respiratory Rate 18 Blood Pressure 117/81 Pulse Oximetry 100 Oxygen Delivery Room Air Exam Const: General: comfortable and no acute distress HENMT: Face/Nose/Sinus: Normal nares present Eyes: General: appearance normal, both eyes and all related structures Neck: Neck: no JVD Resp: Auscultation: clear to auscultation bilaterally Cardio: Rate: regular rate Rhythm: regular rhythm GI: Inspection: non-distended GI Palp: Yes Soft to palpation Skin: General skin exam: normal color Neuro: Speech: normal speech Extrem: General: normal to inspection Psych: Mental Status: mental status grossly normal Assessment and Plan Assessment and plan (1) Irritable bowel syndrome with constipation: Code(s): K58.1 - Irritable bowel syndrome with constipation Status: Acute Assessment and Plan: colonoscopy
[2024-09-25 10:06] VITALS: BP 97/55; PULSE 59; RESP 27; O2SAT 100
[2024-09-25 10:16] VITALS: BP 102/63; PULSE 53; RESP 16; O2SAT 100
[2024-09-25 10:26] VITALS: BP 102/63; PULSE 52; RESP 14; O2SAT 100
== END 2024-09-25 10:32 | disposition home or self-care (01) ==
PROVIDERS: PCP Family Medicine; Referring Provider Nurse Practitioner Family; Visit Provider Internal Medicine Gastroenterology
PROC: 0DJD8ZZ Inspection of Lower Intestinal Tract, Via Natural or Artificial Opening Endoscopic (ICD-10-PCS; CPT 45378; principal; 2024-09-25 09:30)
DX: K58.1 Irritable bowel syndrome with constipation (principal); K63.89 Other specified diseases of intestine; K64.8 Other hemorrhoids; Z87.891 Personal history of nicotine dependence; Z98.84 Bariatric surgery status
CPT/HCPCS: 45378; J2704; J7120